=== PATIENT | female | born 1980 | race African-American/Black ===

== ENCOUNTER 2022-01-29 04:03 | Day surgery (SDC) | payer OTHER ==
[2022-01-23 14:03] VITALS: BMI 36.3
[2022-01-29] MEDS ORDERED: BUPIVACAINE HCL/PF 0.25% (2.5MG/ML) 10 ML VIAL ONE ×2 (07:41→07:55)
[2022-01-29] MEDS ORDERED: BENZOIN/ALOE VERA/STORAX/TOLU 58 ML BOTTLE ONE (07:41)
[2022-01-29] MEDS ORDERED: BUPIVACAINE HCL/PF 0.25% (2.5MG/ML) 10 ML VIAL IJ ONE ×2 (08:02→10:11)
[2022-01-29] MEDS ORDERED: oxyCODONE HCL 5 MG TABLET PO PRN (09:19)
[2022-01-29] MEDS ORDERED: ONDANSETRON 4 MG/2 ML VIAL IVPUSH PRN (09:19)
[2022-01-29] MEDS ORDERED: MIDAZOLAM HCL 2 MG/2 ML SINGLE DOSE VIAL ONE (09:24)
[2022-01-29] MEDS ORDERED: PROPOFOL 20 ML ONE ×3 (09:25)
[2022-01-29] MEDS ORDERED: ROCURONIUM BROMIDE 50 MG/5 ML SYRINGE ONE (09:26)
[2022-01-29] MEDS ORDERED: LACTATED RINGERS SOLUTION 1,000 ML IV SCH (09:30)
[2022-01-29] MEDS ORDERED: KETOROLAC TROMETHAMINE 30 MG/1 ML VIAL ONE (10:02)
[2022-01-29] MEDS ORDERED: DEXAMETHASONE SOD PHOSPHATE 4 MG/1 ML VIAL ONE (10:02)
[2022-01-29] MEDS ORDERED: ESMOLOL HCL 100,000 MCG/10 ML VIAL ONE (10:22)
[2022-01-29] MEDS ORDERED: NEOSTIGMINE METHYLSULFATE 0.5 MG/ML - 10 ML MDV ONE (10:23)
[2022-01-29] MEDS ORDERED: GLYCOPYRROLATE 0.2 MG/1 ML VIAL ONE (10:23)
[2022-01-29] MEDS ORDERED: FENTANYL CITRATE/PF 50 MCG/ML VIAL ONE ×3 (11:24→12:19)
[2022-01-29] MEDS ORDERED: oxyCODONE HCL 5 MG TABLET ONE ×2 (13:27→14:10)
[2022-01-29 14:23] VITALS: BP 124/82; PULSE 100; TEMP 98.2
[2022-01-29] MEDS ORDERED: oxyCODONE HCL 5 MG TABLET PO ONE (15:00)
== END 2022-01-29 15:25 | disposition home or self-care (01) ==
LOC: JASU-SURG 04:03
PROVIDERS: ATTEND Surgery
PROC: 0FT44ZZ Resection of Gallbladder, Percutaneous Endoscopic Approach (ICD-10-PCS; principal; 2022-01-29 09:00)
DX: K80.44 Calculus of bile duct with chronic cholecystitis without obstruction (principal)
CPT/HCPCS: 81025; 88304-TC; 94760